=== PATIENT | female | born 1970 | race Hispanic/Latino ===

== ENCOUNTER → 2017-11-07 | Outpatient (CLI) | payer OTHER ==
[~2017-11-07] MED LIST: GADOBENATE DIMEGLUMINE 1 ML IV ONE
--- NOTE | 2017-11-08 12:05 | Diagnostic Imaging Report ---
EXAMINATION: MRI Abdomen with and without contrast. TECHNIQUE: Axial T1 nonfat sat in and out of phase, axial T2 fat sat, coronal T2 nonfat sat, axial DWI and ADC MR images of the abdomen were obtained before and after the administration of 10 cc of gadolinium. Axial T1 fat sat GRE dynamic images in precontrast, arterial, venous and delayed phases were obtained. Subtraction images were also performed. Heavily T2-weighted MRCP images were also obtained, including thick and thin slab ASSETT, 3-D breath-hold FRFSE and 3-D reconstructions. CLINICAL HISTORY:Elevated lipase, abdominal pain and weight loss, status post cholecystectomy one month ago COMPARISON: None. FINDINGS: LOWER THORAX: Unremarkable. LIVER: The hepatic size and contour are normal.. No hepatic signal abnormality. 0.8 cm T2 hyperintense, T1 hypointense, nonenhancing lesion in hepatic segment VIII (series 7, image 9), likely representing a simple cyst or hematoma. No other focal hepatic lesions.. BILIARY: No intrahepatic biliary ductal dilation. The common bile duct is normal in caliber, measuring approximately 5 mm at the yazmin hepatis and 5.5 mm at the pancreatic head. No internal filling defects. Normal tapering to the ampulla. No mucosal irregularity.. Findings susceptibility artifact from cholecystectomy clips.. PANCREAS: Normal pancreatic enhancement. No focal lesions or ductal dilation. No peripancreatic increased T2 signal/inflammatory changes, free fluid or fluid collections.. SPLEEN: No splenomegaly. ADRENALS: No nodules. KIDNEYS: No hydronephrosis or solid enhancing mass in the imaged portion of the kidneys. 0.7 cm T2 hyperintense, T1 hypointense, nonenhancing simple cyst in the superior to mid right kidney (series 8, image 11). PERITONEUM / RETROPERITONEUM: No upper abdominal free fluid. GI TRACT: The visualized bowel shows no dilation or obstruction. LYMPH NODES: No upper abdominal lymphadenopathy. VESSELS: The celiac trunk, superior and inferior mesenteric and bilateral renal arteries are patent. The portal, superior mesenteric and splenic veins are patent. No collateral circulation. BONES AND SOFT TISSUES: No abnormal bone marrow signal. 0.9 cm T2 and T1 hyperintense lesion in the L5 vertebral body (series 8, image 13) with signal dropout on fat-suppressed images, consistent with a hemangioma. Soft tissues are grossly unremarkable.. IMPRESSION: 1. Unremarkable appearance of the pancreas, without focal lesion, ductal dilation or surrounding inflammatory changes. Please note that the pancreas may have a normal MR appearance in mild pancreatitis. 2. No intra or extrahepatic biliary ductal dilation. No MR evidence of choledocholithiasis. Signed by: Dr. Hugo Martinez M.D. on 11/08/2017 12:02 PM
== END ==
LOC: MRI 14:19
PROVIDERS: ATTEND Internal Medicine Gastroenterology
DX: R74.8 Abnormal levels of other serum enzymes (principal)
CPT/HCPCS: 74183